=== PATIENT | female | born 1935 | race Two or more races ===

== ENCOUNTER 2017-08-30 10:02 | Outpatient (CLI) | payer OTHER ==
[~2017-08-30] VITALS: Ht 162.6 cm; Wt 74.4 kg
[2017-08-30] MEDS ORDERED: DERMOTIC20 ML OTIC (11:26)
[2017-08-30] MEDS ORDERED: FLONASE16 GM NASAL (11:26)
== END 2017-08-30 10:20 | disposition home or self-care (01) ==
LOC: OFIC 805 10:02
DX: J31.0 Chronic rhinitis (principal); H92.03 Otalgia, bilateral; H61.23 Impacted cerumen, bilateral; H90.3 Sensorineural hearing loss, bilateral

== ENCOUNTER 2017-10-04 10:24 | Outpatient (CLI) | payer OTHER ==
[~2017-10-04 10:24] MED LIST: DERMOTIC20 ML OTIC; FLONASE16 GM NASAL
== END 2017-10-04 13:07 | disposition home or self-care (01) ==
LOC: MAMO-SONO 10:24
DX: Z12.31 Encounter for screening mammogram for malignant neoplasm of breast (principal); Z87.898 Personal history of other specified conditions; C50.411 Malignant neoplasm of upper-outer quadrant of right female breast; N60.11 Diffuse cystic mastopathy of right breast; N60.12 Diffuse cystic mastopathy of left breast

== ENCOUNTER 2018-04-09 10:57 | Outpatient (CLI) | payer OTHER | END 2018-04-09 11:12 | disposition home or self-care (01) | LOC: RAD 501 10:57 | DX: M46.47 Discitis, unspecified, lumbosacral region (principal); M47.899 Other spondylosis, site unspecified ==

== ENCOUNTER → 2018-10-09 | Outpatient (CLI) | payer OTHER | END | disposition home or self-care (01) | LOC: MAMO-SONO 09:26 | DX: N60.11 Diffuse cystic mastopathy of right breast (principal); N60.12 Diffuse cystic mastopathy of left breast; C50.411 Malignant neoplasm of upper-outer quadrant of right female breast; Z12.31 Encounter for screening mammogram for malignant neoplasm of breast; Z87.898 Personal history of other specified conditions ==

== ENCOUNTER 2019-11-06 10:40 | Outpatient (CLI) | payer OTHER | END 2019-11-06 10:48 | disposition home or self-care (01) | LOC: MAMO-SONO 10:40 | PROVIDERS: ATTEND Surgery | DX: Z12.31 Encounter for screening mammogram for malignant neoplasm of breast (principal); N60.11 Diffuse cystic mastopathy of right breast; N60.12 Diffuse cystic mastopathy of left breast ==

== ENCOUNTER 2020-05-27 10:00 | Outpatient (CLI) | payer OTHER | END 2020-05-27 11:00 | disposition home or self-care (01) | LOC: PPH VACUNA 10:00 | PROVIDERS: ATTEND Emergency Medicine Pediatric Emergency Medicine | DX: Z23 Encounter for immunization (principal) ==

== ENCOUNTER 2020-06-30 07:56 | Outpatient (CLI) | payer OTHER | END 2020-06-30 08:03 | disposition home or self-care (01) | LOC: NUCLEAR 07:56 | PROVIDERS: ATTEND Surgery | DX: C50.411 Malignant neoplasm of upper-outer quadrant of right female breast (principal); N28.89 Other specified disorders of kidney and ureter | CPT/HCPCS: 78815; A9552 ==